=== PATIENT | female | born 2000 | race African-American/Black ===

== ENCOUNTER 2024-03-25 17:11 | Emergency (ER) | payer OTHER ==
[~2024-03-25] VITALS: Ht 167.6 cm; Wt 77.1 kg
[2024-03-25 19:04] VITALS: PULSE 80; RESP 16; TEMP 99.7; O2SAT 100
[2024-03-25] MEDS ORDERED: DOCUSATE SODIUM LIQD 100 MG/10 ML UDC ONE (21:16)
[2024-03-25] MEDS: DOCUSATE SODIUM LIQD 100 MG/10 ML UDC PO ONE (21:23)
== END 2024-03-25 22:37 | disposition home or self-care (01) ==
LOC: FSED 20:22
DX: R50.9 Fever, unspecified (principal); H91.8X2 Other specified hearing loss, left ear
CPT/HCPCS: 99283